=== PATIENT | female | born 1985 | race Caucasian/White ===

== ENCOUNTER 2016-06-26 23:30 | Emergency (ER) | payer OTHER ==
[2016-06-27 02:30] VITALS: BP 105/63
== END 2016-06-27 02:30 | disposition home or self-care (01) ==
LOC: ED 23:30
DX: H92.01 Otalgia, right ear (principal); N39.0 Urinary tract infection, site not specified; J45.909 Unspecified asthma, uncomplicated

== ENCOUNTER 2016-09-26 18:51 | Emergency (ER) | payer OTHER ==
[2016-09-26 19:49] VITALS: BP 93/67
== END 2016-09-26 19:49 | disposition home or self-care (01) ==
LOC: ED 18:51
DX: H65.91 Unspecified nonsuppurative otitis media, right ear (principal); H70.001 Acute mastoiditis without complications, right ear; J45.909 Unspecified asthma, uncomplicated

== ENCOUNTER 2016-11-18 19:46 | Emergency (ER) | payer OTHER ==
[2016-11-18 23:23] LABS: microscopic required? YES; urine erythrocyte TRACE (NEGATIVE)
[2016-11-18 23:27] LABS: BASOPHIL % 0.3 % (0-2); PLATELET COUNT 228 x10^3mcL (130-400); RED CELL DISTRIBUTION WIDTH 12.5 % (11.5-14.5)
[2016-11-18 23:28] LABS: CALCIUM 8.9 mg/dL (8.5-10.1); CARBON DIOXIDE 26.2 mmol/L (21-32); CHLORIDE SERUM 106 mmol/L (98-107); CREATININE SERUM 0.9 mg/dL (0.6-1.0); GFR1 > 60 mL/min; GLUCOSE SERUM 87 mg/dL (74-106); POTASSIUM SERUM 3.7 mmol/L (3.5-5.1); SODIUM SERUM 139 mmol/L (136-145)
[2016-11-18 23:33] LABS: ALBUMIN 3.8 g/dL (3.4-5.0); ALKALINE PHOSPHATASE 37 U/L (46-116); ALT/SGPT 17 U/L (14-59); AMYLASE 56 U/L (25-115); AST/SGOT 13 U/L (15-37); BILIRUBIN TOTAL 0.4 mg/dL (0.20-1.00); LIPASE 203 IU/L (73-393); TOTAL PROTEIN, SERUM 7.1 g/dL (6.4-8.2)
[2016-11-19 03:59] VITALS: BP 94/60
== END 2016-11-19 03:59 | disposition left against medical advice (07) ==
LOC: ED 19:46
PROVIDERS: Emergency Medicine
DX: R10.32 Left lower quadrant pain (principal); J45.909 Unspecified asthma, uncomplicated; K58.9 Irritable bowel syndrome, unspecified
CPT/HCPCS: 36415; J1885; J2270; J2765; Q0092

== ENCOUNTER 2017-02-03 23:59 | Emergency (ER) | payer OTHER ==
[~2017-02-03] VITALS: Ht 165.1 cm; Wt 59.9 kg
[2017-02-04 02:46] VITALS: BP 99/56
== END 2017-02-04 03:20 | disposition home or self-care (01) ==
LOC: ED 23:59
DX: M25.832 Other specified joint disorders, left wrist (principal); K58.9 Irritable bowel syndrome, unspecified; J45.909 Unspecified asthma, uncomplicated; F41.9 Anxiety disorder, unspecified; F32.9 Major depressive disorder, single episode, unspecified; Z88.6 Allergy status to analgesic agent
CPT/HCPCS: Q0092

== ENCOUNTER 2017-02-15 22:45 | Emergency (ER) | payer OTHER ==
[2017-02-16 00:19] VITALS: BP 111/80
== END 2017-02-16 00:10 | disposition home or self-care (01) ==
LOC: ED 22:45
DX: M67.442 Ganglion, left hand (principal); J45.909 Unspecified asthma, uncomplicated; Z88.6 Allergy status to analgesic agent

== ENCOUNTER 2017-07-17 01:42 | Emergency (ER) | payer OTHER ==
[2017-07-17 03:00] VITALS: BP 100/62
== END 2017-07-17 03:00 | disposition home or self-care (01) ==
LOC: ED 01:42
DX: M67.432 Ganglion, left wrist (principal)

== ENCOUNTER 2017-10-28 01:07 | Emergency (ER) | payer OTHER ==
[~2017-10-28] VITALS: Ht 165.1 cm; Wt 59.4 kg
[2017-10-28 01:19] VITALS: Ht 165.1 cm; Wt 59.4 kg
[2017-10-28 02:47] LABS: microscopic required? NO
[2017-10-28 02:53] LABS: BASOPHIL % 0.5 % (0-2); PLATELET COUNT 230 x10^3mcL (130-400); RED CELL DISTRIBUTION WIDTH 11.6 % (11.5-14.5)
[2017-10-28 02:55] LABS: urine erythrocyte NEGATIVE (NEGATIVE)
[2017-10-28 03:03] LABS: CALCIUM 7.8 mg/dL (8.5-10.1); CARBON DIOXIDE 30.8 mmol/L (21-32); CHLORIDE SERUM 108 mmol/L (98-107); CREATININE SERUM 0.9 mg/dL (0.6-1.0); GFR1 > 60 mL/min; GLUCOSE SERUM 120 mg/dL (74-106); POTASSIUM SERUM 3.3 mmol/L (3.5-5.1); SODIUM SERUM 145 mmol/L (136-145)
[2017-10-28 03:07] LABS: ALBUMIN 3.5 g/dL (3.4-5.0); ALKALINE PHOSPHATASE 42 U/L (46-116); ALT/SGPT 25 U/L (14-59); AST/SGOT 17 U/L (15-37); BILIRUBIN TOTAL 0.17 mg/dL (0.20-1.00); LIPASE 244 IU/L (73-393); TOTAL PROTEIN, SERUM 6.3 g/dL (6.4-8.2)
[2017-10-28 03:39] VITALS: BP 110/55
== END 2017-10-28 03:39 | disposition left against medical advice (07) ==
LOC: ED 01:07
PROVIDERS: Emergency Medicine
DX: Z53.21 Procedure and treatment not carried out due to patient leaving prior to being seen by health care provider (principal)
CPT/HCPCS: 36415

== ENCOUNTER 2018-01-09 01:20 | Emergency (ER) | payer OTHER ==
[2018-01-09 01:26] VITALS: Ht 165.1 cm
[2018-01-09 03:33] VITALS: BP 110/73
== END 2018-01-09 03:33 | disposition home or self-care (01) ==
LOC: ED 01:20
DX: G43.909 Migraine, unspecified, not intractable, without status migrainosus (principal); F32.9 Major depressive disorder, single episode, unspecified; F41.9 Anxiety disorder, unspecified; Z87.442 Personal history of urinary calculi; Z88.8 Allergy status to other drugs, medicaments and biological substances
CPT/HCPCS: J2765; Q0163

== ENCOUNTER 2018-01-30 13:11 | Emergency (ER) | payer OTHER ==
[~2018-01-30] VITALS: Ht 162.6 cm; Wt 57.2 kg
[2018-01-30 13:50] VITALS: Ht 162.6 cm; Wt 57.2 kg
[2018-01-30 15:32] LABS: microscopic required? NO
[2018-01-30 15:47] LABS: UA SPECIFIC GRAVITY <=1.005 (1.005-1.035); urine erythrocyte NEGATIVE (NEGATIVE)
[2018-01-30 15:52] LABS: BASOPHIL % 1.1 % (0-2); PLATELET COUNT 194 x10^3mcL (130-400); RED CELL DISTRIBUTION WIDTH 11.9 % (11.5-14.5)
[2018-01-30 15:55] LABS: CALCIUM 8.4 mg/dL (8.5-10.1); CHLORIDE SERUM 107 mmol/L (98-107); CREATININE SERUM 0.7 mg/dL (0.6-1.0); GFR1 > 60 mL/min; GLUCOSE SERUM 81 mg/dL (74-106); POTASSIUM SERUM 4.6 mmol/L (3.5-5.1); SODIUM SERUM 137 mmol/L (136-145)
[2018-01-30 15:59] LABS: ALBUMIN 3.5 g/dL (3.4-5.0); ALKALINE PHOSPHATASE 52 U/L (46-116); ALT/SGPT 38 U/L (14-59); AST/SGOT 32 U/L (15-37); BILIRUBIN TOTAL 0.42 mg/dL (0.20-1.00); TOTAL PROTEIN, SERUM 6.9 g/dL (6.4-8.2)
[2018-01-30 18:27] VITALS: BP 91/54
== END 2018-01-30 18:27 | disposition home or self-care (01) ==
LOC: ED 13:11
PROVIDERS: Emergency Medicine
DX: N83.201 Unspecified ovarian cyst, right side (principal); D25.9 Leiomyoma of uterus, unspecified; J45.909 Unspecified asthma, uncomplicated; F41.9 Anxiety disorder, unspecified; F32.9 Major depressive disorder, single episode, unspecified; Z71.6 Tobacco abuse counseling; Z87.442 Personal history of urinary calculi; Z98.890 Other specified postprocedural states; Z88.8 Allergy status to other drugs, medicaments and biological substances
CPT/HCPCS: 99406; J1885; J7030; Q0092

== ENCOUNTER 2018-08-16 22:42 | Emergency (ER) | payer OTHER ==
[2018-08-16 22:52] VITALS: Ht 165.1 cm
[2018-08-17 01:17] VITALS: BP 100/66
== END 2018-08-17 01:18 | disposition home or self-care (01) ==
LOC: ED 22:42
DX: M25.571 Pain in right ankle and joints of right foot (principal); F17.210 Nicotine dependence, cigarettes, uncomplicated; J45.909 Unspecified asthma, uncomplicated; F32.9 Major depressive disorder, single episode, unspecified; F41.9 Anxiety disorder, unspecified; K58.9 Irritable bowel syndrome, unspecified; Z87.442 Personal history of urinary calculi; N83.209 Unspecified ovarian cyst, unspecified side

== ENCOUNTER 2018-11-04 19:05 | Emergency (ER) | payer OTHER ==
[2018-11-04 19:06] VITALS: BP 112/76
== END 2018-11-04 20:13 | disposition home or self-care (01) ==
LOC: ED 19:05
DX: S66.911A Strain of unspecified muscle, fascia and tendon at wrist and hand level, right hand, initial encounter (principal); J45.909 Unspecified asthma, uncomplicated; F32.9 Major depressive disorder, single episode, unspecified; Z87.442 Personal history of urinary calculi; Z88.8 Allergy status to other drugs, medicaments and biological substances; W22.8XXA Striking against or struck by other objects, initial encounter; Y93.89 Activity, other specified; Y92.098 Other place in other non-institutional residence as the place of occurrence of the external cause; Y99.8 Other external cause status
CPT/HCPCS: A4570; J1885; Q0092

== ENCOUNTER 2019-03-31 19:38 | Emergency (ER) | payer OTHER ==
[~2019-03-31] VITALS: Ht 165.1 cm; Wt 52.6 kg
[2019-03-31 20:09] VITALS: Ht 165.1 cm; Wt 52.6 kg
[2019-03-31 20:29] LABS: BASOPHIL % 0.4 % (0-2); PLATELET COUNT 230 x10^3mcL (130-400); RED CELL DISTRIBUTION WIDTH 12.3 % (11.5-14.5)
[2019-03-31 20:41] LABS: CALCIUM 8.8 mg/dL (8.5-10.1); CARBON DIOXIDE 28.6 mmol/L (21-32); CHLORIDE SERUM 106 mmol/L (98-107); CREATININE SERUM 0.9 mg/dL (0.6-1.0); GFR1 > 60 mL/min; GLUCOSE SERUM 82 mg/dL (74-106); POTASSIUM SERUM 3.4 mmol/L (3.5-5.1); SODIUM SERUM 138 mmol/L (136-145)
[2019-03-31 20:50] LABS: ALBUMIN 4.1 g/dL (3.4-5.0); ALKALINE PHOSPHATASE 64 U/L (46-116); ALT/SGPT 23 U/L (14-59); AST/SGOT 13 U/L (15-37); BILIRUBIN TOTAL 0.5 mg/dL (0.20-1.00); TOTAL PROTEIN, SERUM 7.1 g/dL (6.4-8.2)
[2019-03-31 21:00] LABS: UA SPECIFIC GRAVITY 1.015 (1.005-1.035); microscopic required? YES; urine erythrocyte 3+ (NEGATIVE)
[2019-03-31 21:09] LABS: AMPHETAMINE QUAL UR NONE DETECTED (See below)
[2019-03-31 21:13] LABS: T4(THYROXINE) 8.4 ug/dL (4.7-13.3)
[2019-03-31 22:22] VITALS: BP 105/66
== END 2019-03-31 22:42 | disposition home or self-care (01) ==
LOC: ED 19:38
PROVIDERS: Emergency Medicine
DX: R53.1 Weakness (principal); N39.0 Urinary tract infection, site not specified; Z87.442 Personal history of urinary calculi
CPT/HCPCS: 36415; 82962; 86788; 86789; 87804

== ENCOUNTER 2019-10-31 12:00 | Emergency (ER) | payer OTHER ==
[~2019-10-31] VITALS: Ht 160 cm; Wt 52.6 kg
[2019-10-31 12:07] VITALS: Ht 160 cm; Wt 52.6 kg
[2019-10-31 14:09] VITALS: BP 108/60
== END 2019-10-31 14:09 | disposition home or self-care (01) ==
LOC: ED 12:00
DX: M25.572 Pain in left ankle and joints of left foot (principal); F17.210 Nicotine dependence, cigarettes, uncomplicated; J45.909 Unspecified asthma, uncomplicated; R53.83 Other fatigue; N83.209 Unspecified ovarian cyst, unspecified side; Z87.442 Personal history of urinary calculi; Z71.6 Tobacco abuse counseling; Z88.6 Allergy status to analgesic agent
CPT/HCPCS: 99406; Q0092

== ENCOUNTER 2020-01-25 14:24 | Emergency (ER) | payer OTHER ==
[~2020-01-25] VITALS: Ht 160 cm; Wt 49.4 kg
[2020-01-25 14:33] VITALS: BP 111/79; Ht 160 cm; Wt 49.4 kg
== END 2020-01-25 16:12 | disposition home or self-care (01) ==
LOC: ED 14:24
DX: S63.502A Unspecified sprain of left wrist, initial encounter (principal); J45.909 Unspecified asthma, uncomplicated; Z87.442 Personal history of urinary calculi; Z88.8 Allergy status to other drugs, medicaments and biological substances; X58.XXXA Exposure to other specified factors, initial encounter; Y93.89 Activity, other specified; Y92.89 Other specified places as the place of occurrence of the external cause; Y99.8 Other external cause status
CPT/HCPCS: J1885; Q0092

== ENCOUNTER 2020-02-16 10:06 | Emergency (ER) | payer OTHER ==
[~2020-02-16] VITALS: Ht 160 cm; Wt 49.4 kg
[2020-02-16 11:05] VITALS: BP 106/76; Ht 160 cm; Wt 49.4 kg
== END 2020-02-16 14:01 | disposition home or self-care (01) ==
LOC: ED 10:06
DX: S93.401A Sprain of unspecified ligament of right ankle, initial encounter (principal); J45.909 Unspecified asthma, uncomplicated; Z87.442 Personal history of urinary calculi; Z88.8 Allergy status to other drugs, medicaments and biological substances; X58.XXXA Exposure to other specified factors, initial encounter; Y93.89 Activity, other specified; Y92.89 Other specified places as the place of occurrence of the external cause; Y99.8 Other external cause status